=== PATIENT | female | born 1950 | race Asian ===

== ENCOUNTER → 2018-05-03 10:40 | Outpatient (CLI) | payer MEDICARE, OTHER, SELFPAY ==
--- NOTE | 2018-05-03 | DI.MG.S_ITS ---
BILATERAL DIGITAL SCREENING MAMMOGRAM 3D/2D WITH CAD: 05/03/2018 CLINICAL: Routine screening. Routine screening. Comparison is made to exams dated: 04/19/2017 mammogram, 04/18/2016 mammogram - [facility], and 10/12/2014 mammogram - [facility]. The tissue of both breasts is heterogeneously dense. This may lower the sensitivity of mammography. Current study was also evaluated with a Computer Aided Detection (CAD) system. No significant masses, calcifications, or other findings are seen in either breast. There has been no significant interval change. IMPRESSION: NEGATIVE There is no mammographic evidence of malignancy. A 1 year screening mammogram is recommended. This exam was interpreted at Station ID: [id number]. NOTE: For mammograms, a report in lay terms will be sent to the patient. Approximately 15% of breast malignancies will not be visualized mammographically. In the management of a palpable breast mass, a negative mammogram must not discourage biopsy of a clinically suspicious lesion. Electronically Signed By: Rachel greenfield/radha:05/03/2018 13:58:26 letter sent: Normal Exam ACR BI-RADS Category 1: Negative 3341F
== END ==
PROVIDERS: PCP Family Medicine; Visit Provider Family Medicine
DX: Z12.31 Encounter for screening mammogram for malignant neoplasm of breast (principal)
CPT/HCPCS: 77063; 77067

== ENCOUNTER → 2019-06-24 15:46 | Outpatient (CLI) | payer MEDICARE, OTHER, SELFPAY ==
--- NOTE | 2019-06-24 | DI.MG.S_ITS ---
BILATERAL DIGITAL SCREENING MAMMOGRAM 3D/2D WITH CAD: 06/24/2019 CLINICAL: Routine screening. Comparison is made to exams dated: 05/03/2018 mammogram, 04/19/2017 mammogram, and 04/18/2016 mammogram - [facility]. The tissue of both breasts is heterogeneously dense. This may lower the sensitivity of mammography. Current study was also evaluated with a Computer Aided Detection (CAD) system. No significant masses, calcifications, or other findings are seen in either breast. There has been no significant interval change. IMPRESSION: NEGATIVE There is no mammographic evidence of malignancy. A 1 year screening mammogram is recommended. This exam was interpreted at Station ID: [id number]. NOTE: For mammograms, a report in lay terms will be sent to the patient. Approximately 15% of breast malignancies will not be visualized mammographically. In the management of a palpable breast mass, a negative mammogram must not discourage biopsy of a clinically suspicious lesion. Electronically Signed By: Mason may/radha:06/25/2019 10:42:14 letter sent: Normal Exam ACR BI-RADS Category 1: Negative 3341F
== END ==
PROVIDERS: PCP Family Medicine; Visit Provider Family Medicine
DX: Z12.31 Encounter for screening mammogram for malignant neoplasm of breast (principal)
CPT/HCPCS: 77063; 77067

== ENCOUNTER → 2020-07-19 15:13 | Outpatient (CLI) | payer MEDICARE, OTHER, SELFPAY ==
--- NOTE | 2020-07-19 | DI.MG.S_ITS ---
BILATERAL DIGITAL SCREENING MAMMOGRAM 3D/2D WITH CAD: 07/19/2020 CLINICAL: Routine screening. Comparison is made to exams dated: 06/24/2019 mammogram, 05/03/2018 mammogram, and 04/19/2017 mammogram - [facility]. The tissue of both breasts is heterogeneously dense. This may lower the sensitivity of mammography. Current study was also evaluated with a Computer Aided Detection (CAD) system. No significant masses, calcifications, or other findings are seen in either breast. There has been no significant interval change. IMPRESSION: NEGATIVE There is no mammographic evidence of malignancy. A 1 year screening mammogram is recommended. This exam was interpreted at Station ID: [id number]. NOTE: For mammograms, a report in lay terms will be sent to the patient. Approximately 15% of breast malignancies will not be visualized mammographically. In the management of a palpable breast mass, a negative mammogram must not discourage biopsy of a clinically suspicious lesion. Electronically Signed By: Mason may/radha:07/19/2020 19:37:29 letter sent: Normal Exam ACR BI-RADS Category 1: Negative 3341F
== END ==
PROVIDERS: PCP Family Medicine; Referring Provider Family Medicine; Visit Provider Family Medicine
DX: Z12.31 Encounter for screening mammogram for malignant neoplasm of breast (principal)
CPT/HCPCS: 77063; 77067

== ENCOUNTER → 2021-08-23 15:13 | Outpatient (CLI) | payer MEDICARE, OTHER, SELFPAY ==
--- NOTE | 2021-08-23 15:16 | DI.MG.S_ITS ---
BILATERAL DIGITAL SCREENING MAMMOGRAM 3D/2D WITH CAD: 08/23/2021 CLINICAL: Family history of breast cancer. Comparison is made to exams dated: 07/19/2020 mammogram, 06/24/2019 mammogram, and 05/03/2018 mammogram - [facility]. The tissue of both breasts is heterogeneously dense. This may lower the sensitivity of mammography. Current study was also evaluated with a Computer Aided Detection (CAD) system. No significant masses, calcifications, or other findings are seen in either breast. There has been no significant interval change. IMPRESSION: NEGATIVE There is no mammographic evidence of malignancy. A 1 year screening mammogram is recommended. This exam was interpreted at Station ID: [id number]. NOTE: For mammograms, a report in lay terms will be sent to the patient. Approximately 15% of breast malignancies will not be visualized mammographically. In the management of a palpable breast mass, a negative mammogram must not discourage biopsy of a clinically suspicious lesion. Electronically Signed By: Rahul wall/radha:08/24/2021 08:28:42 letter sent: Normal Exam ACR BI-RADS Category 1: Negative 3341F
== END ==
PROVIDERS: PCP Family Medicine; Referring Provider Family Medicine; Visit Provider Family Medicine
DX: Z12.31 Encounter for screening mammogram for malignant neoplasm of breast (principal); Z80.3 Family history of malignant neoplasm of breast
CPT/HCPCS: 77063; 77067

== ENCOUNTER → 2021-12-20 14:20 | Outpatient (CLI) | payer MEDICARE, OTHER, SELFPAY ==
--- NOTE | 2021-12-20 | DI.RAD.S_ITS ---
PROCEDURE: XR CHEST 2V INDICATIONS: SHORTNESS OF BREATH TECHNIQUE: 2 views of the chest were acquired. COMPARISON: None. FINDINGS: Surgical changes and devices: None. Lungs and pleura: There is bilateral pleural parenchymal scarring. Nodular opacity in the left upper lobe measuring 1.4 centimeters. No pleural effusion or pneumothorax. Mediastinum: Mediastinal contours are normal. Heart size is normal. Bones and chest wall: No suspicious bony abnormalities. Soft tissues appear unremarkable. IMPRESSION: Apically pleural parenchymal scarring, slightly more pronounced on the left. Nodular opacity in the left upper lobe measuring 1.[address] chest with IV contrast recommended to help exclude neoplasm. Dictated by: Jersey Johnson M.D. on 12/20/2021 at 14:36 Approved by: Jersey Johnson M.D. on 12/20/2021 at 14:37
== END ==
PROVIDERS: PCP Family Medicine; Referring Provider Family Medicine; Visit Provider Family Medicine
DX: J98.4 Other disorders of lung (principal); R06.02 Shortness of breath
CPT/HCPCS: 71046

== ENCOUNTER → 2022-01-10 14:09 | Outpatient (CLI) | payer MEDICARE, OTHER, SELFPAY ==
--- NOTE | 2022-01-10 14:11 | DI.RAD.S_ITS ---
PROCEDURE: XR CHEST 2V INDICATIONS: Shortness of breath TECHNIQUE: 2 views of the chest were acquired. COMPARISON: [facility], CR, XR CHEST 2V, 12/20/2021, 14:13. FINDINGS: Surgical changes and devices: None. Lungs and pleura: Apically scarring is redemonstrated. A spiculated nodule is redemonstrated within the right upper lobe unchanged from the study dated December 20, 2021. The lung bases are clear. No pleural effusion or pneumothorax. Mediastinum: Mediastinal contours are normal. Heart size is normal. Bones and chest wall: No suspicious bony abnormalities. Soft tissues appear unremarkable. IMPRESSION: Suspicious right upper lobe pulmonary nodule. Neoplasm cannot be excluded. CT of the chest is recommended to further characterize findings. Differential considerations include overlapping bone and soft tissue shadows. Dictated by: Rachel Dowell M.D. on 01/10/2022 at 16:19 Approved by: Rachel Dowell M.D. on 01/10/2022 at 16:20
== END ==
PROVIDERS: PCP Family Medicine; Referring Provider Family Medicine; Visit Provider Family Medicine
DX: R06.02 Shortness of breath (principal); R91.1 Solitary pulmonary nodule
CPT/HCPCS: 71046

== ENCOUNTER → 2022-01-23 11:54 | Outpatient (CLI) | payer MEDICARE, OTHER, SELFPAY ==
--- NOTE | 2022-01-23 | DI.CT.S_ITS ---
PROCEDURE: CT CHEST WO CON INDICATIONS: solitary pulmonary nodule TECHNIQUE: Noncontrast 2.0-2.5 mm thick sections acquired from the pulmonary apices to the posterior costophrenic angles. 7 mm thick axial MIP and 5 mm coronal and sagittal reformats were then acquired. A low radiation dose technique was utilized. COMPARISON: [facility], CR, XR CHEST 2V, 01/10/2022, 14:16. FINDINGS: Image quality: Diagnostic, given the low radiation dose technique. Lungs and pleura: There is apically scarring bilaterally. Paraseptal emphysema is also present at the bilateral apices. Some bronchiectasis is present within the posterior upper lobes. Focal bronchiectasis is present at the lingular base. Pulmonary scarring within the left apex likely corresponds with the questionable pulmonary nodule visualized on the comparison CT dated January 10, 2022. No pleural effusion or pneumothorax. Mediastinum: Heart size is normal. No pericardial effusion. No mediastinal adenopathy by size criteria. Thoracic aorta and central pulmonary arteries are normal in size. Esophagus is normal in caliber. No hiatal hernia. Bones and chest wall: No suspicious bony lesions. No vertebral body compression fractures. No axillary or supraclavicular adenopathy by size criteria. Thyroid gland is unremarkable. Abdomen: Innumerable hypodense cystic lesions are partially visualized within the liver. There is a partially visualized calcified gallstone within the gallbladder fundus. Visualized upper abdomen solid organs and bowel loops appear normal in the absence of contrast. IMPRESSION: 1. Pulmonary scarring at the left apex likely represents a questionable nodule visualized on the comparison CT dated January 10, 2022. 2. Multifocal bronchiectasis, apical scarring, and paraseptal emphysema at the apices. Fleischner Society criteria for SOLID lung nodule followup. Nodule size (mm)Low-risk patientHigh-risk patient<6 (single or multiple)No routine followup.Optional CT at 12 months. 6-8 (single or multiple)CT at 6-12 months, then optional CT at 18-24 mo.CT at 6-12 months, then CT at 18-24 months. >8 (single)CT at 3 months, PET-CT, or biopsy. Same as for low-risk pts. >8 (multiple)CT at 3-6 months, then optional CT at 18-24 mo.CT at 3-6 months, then CT at 18-24 months. Fleischner Society criteria for SUB-SOLID lung nodule followup. Solitary pure ground-glass nodules<6 mm (ground glass or part solid)No followup needed. 6 mm or larger (ground glass)CT at 6-12 months to confirm persistence, then CT every 2 years until 5 years.6 mm or larger (part solid)CT at 3-6 months to confirm persistence, then annual CT until 5 years if unchanged and solid component remains <6 mm. Multiple sub-solid nodules<6 mmCT at 3-6 months, then CT consider at 2 & 4 years for high risk patients. [address] at 3-6 months. Subsequent management based on most suspicious lesions. Recommendations do not apply to lung cancer screening, patients with immunosuppression, or patients with known primary cancer. Dictated by: Rachel Dowell M.D. on 01/23/2022 at 13:52 Approved by: Rachel Dowell M.D. on 01/23/2022 at 14:22
== END ==
PROVIDERS: PCP Family Medicine; Referring Provider Family Medicine; Visit Provider Family Medicine
DX: R91.1 Solitary pulmonary nodule (principal); J47.9 Bronchiectasis, uncomplicated
CPT/HCPCS: 71250

== ENCOUNTER → 2022-08-31 12:21 | Outpatient (CLI) | payer MEDICARE, OTHER, SELFPAY ==
--- NOTE | 2022-08-31 | DI.MG.S_ITS ---
BILATERAL DIGITAL SCREENING MAMMOGRAM 3D/2D WITH CAD: 08/31/2022 CLINICAL: Routine screening. Family history of breast cancer. Comparison is made to exams dated: 08/23/2021 mammogram, 07/19/2020 mammogram, 06/24/2019 mammogram, 05/03/2018 mammogram, and 04/19/2017 mammogram - [facility]. Both breasts are heterogeneously dense, which may obscure small masses (category c / 51-75% glandular tissue). Current study was also evaluated with a Computer Aided Detection (CAD) system. No significant masses, calcifications, or other findings are seen in either breast. There has been no significant interval change. IMPRESSION: NEGATIVE There is no mammographic evidence of malignancy. A 1 year screening mammogram is recommended. Based on the Tyrer Cuzick model (a risk assessment model) the patient's lifetime risk is 6.5% and her 10 year risk is 5.3%. According to the ACR, ACS, and NCCN guidelines, an annual breast MRI exam along with mammogram is recommended if the patient's lifetime risk is 20% or greater. This exam was interpreted at Station ID: [id number]. NOTE: For mammograms, a report in lay terms will be sent to the patient. Approximately 15% of breast malignancies will not be visualized mammographically. In the management of a palpable breast mass, a negative mammogram must not discourage biopsy of a clinically suspicious lesion. Electronically Signed By: Jersey Johnson M.D., jr/radha:08/31/2022 13:42:41 letter sent: Normal Exam ACR BI-RADS Category 1: Negative 3341F
== END ==
PROVIDERS: PCP Family Medicine; Referring Provider Family Medicine; Visit Provider Family Medicine
DX: Z12.31 Encounter for screening mammogram for malignant neoplasm of breast (principal); Z80.3 Family history of malignant neoplasm of breast
CPT/HCPCS: 77063; 77067

== ENCOUNTER → 2023-03-29 13:16 | Outpatient (CLI) | payer MEDICARE, OTHER, SELFPAY ==
--- NOTE | 2023-03-29 | DI.CT.S_ITS ---
PROCEDURE: CT CHEST WO CON INDICATIONS: Chronic obstructive pulmonary disease TECHNIQUE: Noncontrast 5 mm thick sections acquired from the pulmonary apices to the posterior costophrenic angles. 1 mm lung window, 5 mm thick coronal and sagittal and 7 mm axial MIP reformats were then acquired. For radiation dose reduction, the following was used: automated exposure control, adjustment of mA and/or kV according to patient size. COMPARISON: [facility], CT, CT CHEST WO [facility], 01/23/2022, 11:59. FINDINGS: Image quality: Excellent. Lungs and pleura: Biapical scarring. Paraseptal emphysematous changes. Bronchiectasis within the posterior upper [place] and in the lingular base is unchanged. The lungs have centrilobular emphysematous changes. No acute air space opacities. No pleural effusions or pneumothorax. Central and peripheral airways are patent and normal in caliber. Mediastinum: Heart size is normal. No pericardial effusion. No mediastinal adenopathy by size criteria. Thoracic aorta and central pulmonary arteries are normal in size. Esophagus is normal in caliber. No hiatal hernia. Bones and chest wall: No suspicious bony lesions. No vertebral body compression fractures. No axillary or supraclavicular adenopathy by size criteria. Thyroid gland is normal. Abdomen: Visualized upper abdominal solid organs and bowel loops appear normal in the absence of contrast. IMPRESSION: 1. No acute abnormality. 2. Multifocal bronchiectasis with apical scarring and emphysematous changes. 3. Multifocal bronchiectasis. 4. Hepatic cysts are unchanged. Dictated by: Santino Mcneal M.D. on 03/29/2023 at 16:19 Approved by: Santino Mcneal M.D. on 03/29/2023 at 16:25
== END ==
PROVIDERS: PCP Family Medicine; Referring Provider Family Medicine; Visit Provider Family Medicine
DX: J44.9 Chronic obstructive pulmonary disease, unspecified (principal); J47.9 Bronchiectasis, uncomplicated; K76.89 Other specified diseases of liver
CPT/HCPCS: 71250

== ENCOUNTER → 2023-07-11 11:54 | Outpatient (CLI) | payer MEDICARE, OTHER, SELFPAY ==
--- NOTE | 2023-07-11 | DI.CT.S_ITS ---
PROCEDURE: CT CHEST WO CON INDICATIONS: PULMONARY NODULE TECHNIQUE: Noncontrast 2.0-2.5 mm thick sections acquired from the pulmonary apices to the posterior costophrenic angles. 7 mm thick axial MIP and 5 mm coronal and sagittal reformats were then acquired. For radiation dose reduction, the following was used: automated exposure control, adjustment of mA and/or kV according to patient size. COMPARISON: [facility], CT, CT CHEST WO CON, 03/29/2023, 13:38. FINDINGS: Image quality: Diagnostic, given the low radiation dose technique. Lungs and pleura: There is a biapical scarring, emphysematous change, and mild pulmonary nodularity appears stable appearance from prior examination. There is also some mild scarring at the lung bases. A pulmonary nodule at the right lung base laterally appears to have decreased in size from prior examination suggesting this was inflammatory nature. Areas of bronchiectasis remain unchanged. Mediastinum: Heart size is normal. No pericardial effusion. No mediastinal adenopathy by size criteria. Thoracic aorta and central pulmonary arteries are normal in size. Esophagus is normal in caliber. No hiatal hernia. Coronary artery and atherosclerotic calcifications are present. Bones and chest wall: No suspicious bony lesions. No vertebral body compression fractures. No axillary or supraclavicular adenopathy by size criteria. No thyroid nodules which require sonographic follow up, per consensus guidelines. Upper Abdomen: Elect portions of the upper abdominal viscera again show multiple hepatic cysts and are gallstones present within the patient's gallbladder. IMPRESSION: 1. Relatively stable areas of scarring, emphysematous change, and bronchiectasis noted throughout both lungs with no significant new acute findings identified. 2. Pulmonary nodule the patient's left lung base laterally has decreased in size from the prior examination suggesting this was inflammatory in nature. 3. Coronary artery and atherosclerotic vascular calcifications. 4. Stable hepatic cysts. 5. Cholelithiasis. 6. Recommend noncontrast chest CT in approximately 1 year to assess nodularity for any significant change. Approved by: Jesus Keller M.D. on 07/11/2023 at 17:43
== END ==
PROVIDERS: PCP Family Medicine; Referring Provider Family Medicine; Visit Provider Family Medicine
DX: R91.1 Solitary pulmonary nodule (principal); J98.4 Other disorders of lung; J47.9 Bronchiectasis, uncomplicated; I25.10 Atherosclerotic heart disease of native coronary artery without angina pectoris; K76.89 Other specified diseases of liver; K80.20 Calculus of gallbladder without cholecystitis without obstruction
CPT/HCPCS: 71250

== ENCOUNTER → 2024-07-31 13:01 | Outpatient (CLI) | payer MEDICARE, OTHER, SELFPAY ==
[2024-07-31 14:09] LABS: Add Manual Diff / Slide Review NO; Basophils Absolute Auto 100 /uL (0-100); Basophils Percent Auto 2.2 % (0-2); Eosinophils Absolute Auto 300 /uL (0-450); Hematocrit 46.2 % (36-46); Hemoglobin 15.4 g/dL (12.0-16.0); Lymphocytes Absolute Auto 1300 /uL (1100-4500); Lymphocytes Percent Auto 28.5 % (25-40); Mean Corpuscular HGB Conc 33.3 % (30-36); Mean Corpuscular Hemoglobin 31.7 PG (26-34); Mean Corpuscular Volume 95.3 fL (80-100); Monocytes Absolute Auto 400 /uL (0-900); Neutrophils Absolute Auto 2500 /uL (1500-7000); Neutrophils Percent Auto 54.3 % (50-75); Platelet Count 319 X10^3/uL (150-400); Red Blood Cell Count 4.85 X10^6/uL (4.0-5.2); Red Cell Distribution Width 12.5 % (11.6-14.8); White Blood Cell Count 4.6 X10^3/uL (4.5-11.0)
[2024-07-31 14:30] LABS: Alanine Aminotransferase 20 IU/L (<35); Albumin 4.3 g/dL (3.5-5.0); Albumin Globulin Ratio 1.3 (1.0-2.8); Alkaline Phosphatase 81 U/L (38-126); Aspartate Aminotransferase 32 IU/L (14-36); BUN Creatinine Ratio 22.4 (6-22); Bilirubin Total 1.1 mg/dL (0.2-1.3); Blood Urea Nitrogen 15 mg/dL (7-17); Calcium 9.4 mg/dL (8.4-10.2); Carbon Dioxide 30 mmol/L (22-32); Chloride 103 mmol/L (98-107); Cholesterol 295 mg/dL (140-199); Estimated Glomerular Filt Rate > 60 mL/min (>60); Globulin 3.3 g/dL (1.7-4.1); Glucose 97 mg/dL (80-110); HDL Cholesterol 88 mg/dL (40-60); HEMOLYSIS < 15 (0-50); LDL Cholesterol Calculated 189 mg/dL (<100); Potassium 4.3 mmol/L (3.4-5.1); Sodium 139 mmol/L (137-145); Total Protein 7.6 g/dL (6.3-8.2); Triglycerides 91 mg/dL (35-150)
== END ==
LOC: LAB 13:02
PROVIDERS: PCP Family Medicine; Referring Provider Family Medicine; Visit Provider Family Medicine
DX: E55.9 Vitamin D deficiency, unspecified (principal); E78.49 Other hyperlipidemia; Z13.228 Encounter for screening for other metabolic disorders
CPT/HCPCS: 36415; 80053; 80061; 85025

== ENCOUNTER → 2024-08-11 13:52 | Outpatient (CLI) | payer MEDICARE, OTHER, SELFPAY ==
--- NOTE | 2024-08-11 | DI.CT.S_ITS ---
PROCEDURE: CT CHEST WO CON INDICATIONS: Solitary pulmonary nodule TECHNIQUE: Noncontrast 5 mm thick sections acquired from the pulmonary apices to the posterior costophrenic angles. 1 mm lung window, 5 mm thick coronal and sagittal and 7 mm axial MIP reformats were then acquired. For radiation dose reduction, the following was used: automated exposure control, adjustment of mA and/or kV according to patient size. COMPARISON: [facility], CT, CT CHEST WO CON, 07/11/2023, 12:05. FINDINGS: Image quality: Diagnostic. Lower Neck: No enlarged lymph nodes. Thyroid: Normal CT appearance. Axillae: No enlarged lymph nodes. Chest Wall: No suspicious chest wall mass. Bones: Unremarkable. Lungs and Pleura: Bilateral posterior apical and upper lobe pleural scarring with underlying cystic and traction bronchiectasis. Bronchiectasis to similar degree is also seen in the lingula. Scattered areas of bronchial wall thickening present bilaterally. Micro nodules mainly in the periphery suggestive of mucous plugging. There are occasional calcified nodules in the left lung. No suspicious lung mass. Pleural parenchymal scarring at both lung bases laterally. No pleural effusion or pleural calcification. Heart: Heart size is normal. No pericardial effusion. Thoracic Vessels: The aorta and pulmonary arteries demonstrate normal size. Mediastinum and Ines: No enlarged lymph nodes. Esophagus: No wall thickening. No hiatal hernia. Upper Abdomen: Numerous hepatic cysts, one with peripheral calcification in the posterior right lobe. Cholelithiasis. IMPRESSION: No significant change to multifocal traction and cystic bronchiectasis primarily involving the upper lobes and lingula. Several areas of bronchial wall thickening and mucous plugging. No dense consolidations. No new suspicious lung nodule or mass. Dictated by: Ansley Field M.D. on 08/11/2024 at 14:58 Approved by: Ansley Field M.D. on 08/11/2024 at 15:11
== END ==
PROVIDERS: PCP Family Medicine; Referring Provider Family Medicine; Visit Provider Family Medicine
DX: J47.9 Bronchiectasis, uncomplicated (principal); R91.1 Solitary pulmonary nodule; K80.20 Calculus of gallbladder without cholecystitis without obstruction; K76.0 Fatty (change of) liver, not elsewhere classified
CPT/HCPCS: 71250

== ENCOUNTER → 2024-10-13 13:54 | Outpatient (CLI) | payer MEDICARE, OTHER, SELFPAY ==
[2024-10-13 15:13] LABS: Cholesterol 294 mg/dL (140-199); HDL Cholesterol 78 mg/dL (40-60); LDL Cholesterol Calculated 191 mg/dL (<100); Triglycerides 127 mg/dL (35-150)
== END ==
PROVIDERS: PCP Family Medicine; Referring Provider Family Medicine; Visit Provider Family Medicine
DX: E78.49 Other hyperlipidemia (principal)
CPT/HCPCS: 36415; 80061

== ENCOUNTER → 2025-01-15 09:36 | Outpatient (CLI) | payer MEDICARE, OTHER, SELFPAY ==
[2025-01-15 10:07] LABS: Add Manual Diff / Slide Review NO; Basophils Absolute Auto 100 /uL (0-100); Basophils Percent Auto 1.6 % (0-2); Eosinophils Absolute Auto 300 /uL (0-450); Eosinophils Percent Auto 7.5 % (2-4); Hematocrit 44.8 % (36-46); Hemoglobin 14.8 g/dL (12.0-16.0); Lymphocytes Absolute Auto 1300 /uL (1100-4500); Mean Corpuscular HGB Conc 33.1 % (30-36); Mean Corpuscular Hemoglobin 31.7 PG (26-34); Monocytes Absolute Auto 400 /uL (0-900); Monocytes Percent Auto 9.8 % (3-14); Neutrophils Absolute Auto 2300 /uL (1500-7000); Neutrophils Percent Auto 52.1 % (50-75); Platelet Count 256 X10^3/uL (150-400); Red Blood Cell Count 4.67 X10^6/uL (4.0-5.2); White Blood Cell Count 4.4 X10^3/uL (4.5-11.0)
[2025-01-15 10:22] LABS: Alanine Aminotransferase 31 IU/L (<35); Albumin 4.4 g/dL (3.5-5.0); Albumin Globulin Ratio 1.4 (1.0-2.8); Alkaline Phosphatase 73 U/L (38-126); Aspartate Aminotransferase 38 IU/L (14-36); BUN Creatinine Ratio 27.3 (6-22); Bilirubin Total 1.2 mg/dL (0.2-1.3); Blood Urea Nitrogen 15 mg/dL (7-17); Calcium 9.3 mg/dL (8.4-10.2); Carbon Dioxide 31 mmol/L (22-32); Chloride 100 mmol/L (98-107); Cholesterol 247 mg/dL (140-199); Estimated Glomerular Filt Rate > 60 mL/min (>60); Globulin 3.1 g/dL (1.7-4.1); Glucose 96 mg/dL (70-99); HDL Cholesterol 86 mg/dL (40-60); HEMOLYSIS < 15 (0-50); LDL Cholesterol Calculated 129 mg/dL (<100); Magnesium 2.1 mg/dL (1.6-2.3); Potassium 4.1 mmol/L (3.4-5.1); Sodium 137 mmol/L (137-145); Total Protein 7.5 g/dL (6.3-8.2); Triglycerides 159 mg/dL (35-150)
[2025-01-15 10:38] LABS: Vitamin D 25 Hydroxy (D3) 35.5 ng/mL (30.0-100.0)
[2025-01-15 10:51] LABS: Thyroid Stimulating Hormone 2.89 uIU/mL (0.47-4.68)
[2025-01-15 12:49] LABS: Vitamin B12 879 pg/mL (239-931)
== END ==
PROVIDERS: PCP Family Medicine; Referring Provider Family Medicine; Visit Provider Family Medicine
DX: D51.9 Vitamin B12 deficiency anemia, unspecified (principal); E55.9 Vitamin D deficiency, unspecified; E61.2 Magnesium deficiency; Z13.228 Encounter for screening for other metabolic disorders
CPT/HCPCS: 36415; 80053; 80061; 82306; 82607; 83735; 84443; 85025